=== PATIENT | male | born 1960 | race Caucasian/White ===

== ENCOUNTER 2017-03-21 06:27 | Emergency (ER) | payer MEDICARE, MEDICAID ==
[~2017-03-21] VITALS: Ht 170.2 cm; Wt 72.7 kg
[~2017-03-21 06:27] MED LIST: ATOR20TA86 PO; BENZ2TAB58 PO; CLOP75 PO; INSU100C4 SQ; ISOS30TA6 PO; LAMO25TA66 PO; LEVE750T4 PO; LISI-661 PO; METF1000 PO; MIRT15 PO; PANT20TA PO; PHENY100 PO; TAMS0.4C32 PO; ZIPR40CA2 PO; [UNRECOGNIZED DRUG - CODE] PO
[2017-03-21 06:47] LABS: GLUCOSE,POINT OF CARE 138 MG/DL (70-110)
[2017-03-21] MEDS ORDERED: PRAZ2 PO (06:58)
[2017-03-21] MEDS ORDERED: OLAN2.5T3 PO (06:58)
[2017-03-21] MEDS ORDERED: RISP.5 PO (06:58)
[2017-03-21] MEDS ORDERED: CALC25 PO (06:58)
[2017-03-21] MEDS ORDERED: PHOSLOC PO (06:58)
[2017-03-21] MEDS ORDERED: PANT40TA25 PO (06:58)
[2017-03-21] MEDS ORDERED: CITA10TA7 PO (06:58)
[2017-03-21] MEDS ORDERED: SIMV-260 PO (06:58)
[2017-03-21] MEDS ORDERED: BUPR-93 PO (06:58)
[2017-03-21] MEDS ORDERED: AMLO-512 PO (06:58)
[2017-03-21] MEDS ORDERED: PHEN32.43 PO (06:58)
[2017-03-21] MEDS ORDERED: LEVO25TA9 PO (06:58)
[2017-03-21] MEDS ORDERED: ROSU20 PO (06:58)
[2017-03-21] MEDS ORDERED: ALLO100T PO (06:58)
[2017-03-21] MEDS ORDERED: LAMO100 PO (06:58)
[2017-03-21] MEDS ORDERED: METO-391 PO (06:58)
[2017-03-21] MEDS ORDERED: SERT50TA12 PO (06:58)
[2017-03-21] MEDS ORDERED: CLON.5 PO (06:58)
[2017-03-21] MEDS ORDERED: INSU100V SQ (06:58)
[2017-03-21] MEDS ORDERED: BARIUM SULFATE 0.1% SUSPENSION 450 ML BOTTLE PO ONE (07:15)
[2017-03-21 08:34] LABS: BASOPHILS % (AUTO) 0.3 % (0.0-2.0); EOSINOPHILS % (AUTO) 2.6 % (1.0-6.0); HEMATOCRIT 33.2 % (41-53); HEMOGLOBIN 11.2 g/dL (13.5-17.5); LYMPHOCYTES # (AUTO) 2.4 K/uL (1.0-4.8); LYMPHOCYTES % (AUTO) 20.7 % (22.0-44.0); MEAN CORPUSCULAR HEMOGLOBIN 29.8 pg (26.0-34.0); MEAN CORPUSCULAR HGB CONC 33.9 G/dL (31.0-37.0); MEAN CORPUSCULAR VOLUME 88 fL (80-100); MONOCYTES # (AUTO) 0.9 K/uL (0.1-1.0); NEUTROPHILS # (AUTO) 8.1 K/uL (1.8-7.7); NEUTROPHILS % (AUTO) 68.4 % (40.0-70.0); PLATELET COUNT (AUTO) 234 K/uL (150-450); RED BLOOD CELL COUNT(AUTO) 3.77 MIL/uL (4.50-5.90); RED CELL DISTRIBUTION WIDTH 14.8 % (11.5-14.5)
[2017-03-21 08:36] LABS: ANION GAP 15 mmol/L (8-16); CALCIUM, TOTAL 8.6 mg/dL (8.8-10.5); CARBON DIOXIDE 22 mmol/L (22-29); CHLORIDE 97 mmol/L (98-107); CREATININE 8.42 mg/dL (0.60-1.30); GLOMERULAR FILTR. RATE CALC 7 mL/min (>60); GLUCOSE,RANDOM 151 mg/dL (70-110); POTASSIUM 5.2 mmol/L (3.5-5.1); SODIUM SERUM 134 mmol/L (136-145); UREA NITROGEN, BLOOD 56 mg/dL (7-18)
[2017-03-21 08:41] LABS: ALANINE AMINOTRANSFERASE 26 U/L (12-78); ALBUMIN 2.9 g/dL (3.4-5.0); ALKALINE PHOSPHATASE 88 U/L (46-116); ASPARTATE AMINOTRANSFERASE 15 U/L (15-37); BILIRUBIN,TOTAL 0.3 mg/dL (0.1-1.0); CREATINE KINASE, TOTAL 36 U/L (39-308); TOTAL PROTEIN, SERUM 6.6 g/dL (6.4-8.2)
[2017-03-21 08:42] LABS: INR 0.9 (0.9-1.1); PROTHROMBIN TIME 9.6 SEC (9.4-11.6)
[2017-03-21 08:43] LABS: APPEARANCE,URINE CLEAR (CLEAR); BILIRUBIN,URINE NEGATIVE (NEGATIVE); GLUCOSE, URINE (UA) 250 mg/dL (NEGATIVE); KETONES,URINE NEGATIVE (NEGATIVE); LEUKOCYTE ESTERASE ,URINE NEGATIVE (NEGATIVE); NITRATE,URINE NEGATIVE (NEGATIVE); OCCULT BLOOD,URINE TRACE (NEGATIVE); PROTEIN,URINE SEE CONFIRM (NEGATIVE); UROBILINOGEN,URINE 0.2 mg/dL (<=1.0)
[2017-03-21 09:01] LABS: RBC,URINE 0-2 /HPF (0-2); SULFOSALICYLIC ACID,URINE 1+ (Negative)
[2017-03-21 09:02] LABS: BACTERIA,URINE None Seen /HPF (None Seen); SQUAMOUS EPITHELIAL CELL,UR Few /LPF (None Seen); WBC,URINE 0-2 /HPF (0-5)
[2017-03-21 09:17] LABS: B-TYPE NATRIURETIC PEPTIDE 446 pg/mL (0-100)
[2017-03-21 13:48] VITALS: BP 154/81
[2017-03-21] MEDS ORDERED: SODIUM POLYSTYRENE SULFONATE 15 GM/60 ML SUSPENSION BOTTLE PO ONE ×2 (14:15)
[2017-03-21] MEDS ORDERED: PHEN60TA15 PO (14:23)
== END 2017-03-21 14:55 | disposition home or self-care (01) ==
LOC: EMS 06:28
DX: R14.0 Abdominal distension (gaseous) (principal); I13.2 Hypertensive heart and chronic kidney disease with heart failure and with stage 5 chronic kidney disease, or end stage renal disease; E11.22 Type 2 diabetes mellitus with diabetic chronic kidney disease; N18.6 End stage renal disease; I50.9 Heart failure, unspecified; I25.2 Old myocardial infarction; I25.10 Atherosclerotic heart disease of native coronary artery without angina pectoris; F17.210 Nicotine dependence, cigarettes, uncomplicated; Z79.4 Long term (current) use of insulin; Z99.2 Dependence on renal dialysis; Z88.0 Allergy status to penicillin; Z88.1 Allergy status to other antibiotic agents; Z88.6 Allergy status to analgesic agent; Z88.8 Allergy status to other drugs, medicaments and biological substances; Z91.040 Latex allergy status
CPT/HCPCS: 74176; 76700; 82962; 93005; 99285